=== PATIENT | male | born 1990 | race Two or more races ===

== ENCOUNTER 2016-09-11 13:31 | Emergency (ER) | payer OTHER ==
[~2016-09-11] VITALS: Ht 175.3 cm; Wt 71.2 kg
[~2016-09-11 13:31] MED LIST: AZIT200S PO; BACT5UDC PO; LORT5TAB PO; NAPR550 PO; PROM6.257 PO; Z.0.NO CURRENT MEDS
[2016-09-11 14:02] VITALS: BP 137/83; PULSE 82; RESP 15; TEMP 98.3; O2SAT 100
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
[2016-09-11] MEDS ORDERED: ROBA750T PO (15:41)
[2016-09-11] MEDS ORDERED: IBUP800T23 PO (15:41)
[2016-09-11] MEDS ORDERED: KETOROLAC TROMETHAMINE 60 MG/2 ML (IM) VIAL IM ONE (15:45)
[2016-09-11] MEDS ORDERED: METHOCARBAMOL 500 MG TAB PO ONE (15:45)
[2016-09-11] MEDS ORDERED: IBUPROFEN 800 MG TAB PO ONE (15:45)
[2016-09-11] MEDS ORDERED: ORPHENADRINE INJ 60 MG/2 ML AMP IM ONE (15:45)
== END 2016-09-11 15:50 | disposition home or self-care (01) ==
LOC: PHEFT 13:31
DX: S16.1XXA Strain of muscle, fascia and tendon at neck level, initial encounter (principal); S39.012A Strain of muscle, fascia and tendon of lower back, initial encounter; V43.52XA Car driver injured in collision with other type car in traffic accident, initial encounter
CPT/HCPCS: 99283